=== PATIENT | female | born 1950 ===

== ENCOUNTER 2025-03-17 15:56 | Outpatient (CLI) | payer MEDICARE, OTHER, SELFPAY ==
--- NOTE | ~2025-03-17 | XR_ITS ---
EXAMINATION: XR sacroiliac joints min 3V, 03/17/2025 16:10 CDT HISTORY: Sacrococcygeal disorders, SEVERE LBP WORSNED SINCE SATURDAY COMPARISON: No comparisons available. Findings: No acute fracture or malalignment. Sclerosis noted of the sacroiliac joint noted but no bridging osteophyte formation or erosions. Soft tissues unremarkable. Impression: No acute fracture or malalignment. Reviewed, dictated and finalized at location P. Impression: No acute fracture or malalignment.
== END 2025-03-17 15:57 | disposition home or self-care (01) ==
LOC: MICIMG 16:00
PROVIDERS: PCP Family Medicine; Visit Provider Physician Assistant
DX: M53.3 Sacrococcygeal disorders, not elsewhere classified (principal)
CPT/HCPCS: 72202